=== PATIENT | male | born 1965 | race Caucasian/White ===

== ENCOUNTER 2021-04-06 09:21 | Inpatient (IN) | payer MEDICAID, OTHER ==
[~2021-04-06] VITALS: Ht 177.8 cm; Wt 118.2 kg
[2021-04-06] MEDS ORDERED: nitroGLYCERIN 0.4mg SUBLingual tab SL PRN ×2 (09:40→11:35)
[2021-04-06] MEDS ORDERED: diltiazem-NS 100mg/100ml 100 ML IV ONE (09:40)
[2021-04-06] MEDS ORDERED: aspirin 81mg tab.chew PO ONE (09:40)
[2021-04-06] MEDS ORDERED: diltiazem 5mg/ml 5ml inj. IV ONE (09:40)
[2021-04-06] MEDS ORDERED: nitroGLYCERIN 0.4mg/hour patch TD ONE (09:40)
[2021-04-06 10:01] LABS: BASOPHILS # (AUTO) 0.1 X10'3 (0-0.2); BASOPHILS % (AUTO) 1.3 % (0-1); EOSINOPHILS # (AUTO) 0.2 X10'3 (0-0.9); EOSINOPHILS % (AUTO) 3.3 % (0-6); HEMATOCRIT 49.9 % (42.0-52.0); HEMOGLOBIN 17.6 g/dl (14.0-17.9); LYMPHOCYTES # (AUTO) 1.8 X10'3 (1.1-4.8); MEAN CORPUSCULAR HEMOGLOBIN 32.4 PG (27.0-31.0); MEAN CORPUSCULAR HGB CONC 35.3 g/dL (33.0-36.5); MEAN PLATELET VOLUME 8.2 FL (7.4-10.4); MONOCYTES # (AUTO) 0.5 X10'3 (0-0.9); NEUTROPHILS # (AUTO) 3.4 X10'3 (1.8-7.7); NEUTROPHILS % (AUTO) 57.4 % (42-75); PLATELET COUNT 154 X10'3 (140-440); RED BLOOD COUNT 5.42 X10'6 (4.70-6.10); RED CELL DISTRIBUTION WIDTH 13.5 % (11.5-14.5); WHITE BLOOD COUNT 5.9 X10'3 (4.5-11.0)
[2021-04-06 10:23] LABS: ALANINE AMINOTRANSFERASE 62 U/L (12-78); ALBUMIN 3.5 G/DL (3.4-5.0); ALBUMIN/GLOBULIN RATIO 0.9 (1.1-1.5); ALKALINE PHOSPHATASE 116 IU/L (46-116); ASPARTATE AMINO TRANSFERASE 39 U/L (10-37); BILIRUBIN,TOTAL 0.4 MG/DL (0.1-1.0); BLOOD UREA NITROGEN 15 MG/DL (7-18); BUN/CREATININE RATIO 13.9 (5.4-32.0); CALCIUM 9.1 MG/DL (8.5-10.1); CREATININE 1.08 MG/DL (0.60-1.10); GLUCOSE 138 MG/DL (70-104); MAGNESIUM 1.7 MG/DL (1.5-2.4); TOTAL CARBON DIOXIDE 26.1 MMOL/L (24-32); TOTAL PROTEIN 7.6 G/DL (6.4-8.2); eGFR 71 ML/MIN
--- NOTE | 2021-04-06 10:30 | NUR ---
made dr malin aware that pt denies any cp at this time ,nitro patch is on.
[2021-04-06 11:07] LABS: ANION GAP 8 (8-16); CHLORIDE 106 MMOL/L (99-107); POTASSIUM 4.5 MMOL/L (3.5-5.1); SODIUM 140 MMOL/L (135-145)
[2021-04-06] MEDS ORDERED: PERFLUTREN PROTEIN-A MICROSPHR (Optison) 0.22 MG/ML 3ML VIAL IV ONE (11:30)
[2021-04-06] MEDS ORDERED: magnesium Cl slow-release 64mg tablet PO PRN (11:30)
[2021-04-06] MEDS ORDERED: potassium CL 10mEq/100ml bag 100 ML IV PRN (11:30)
[2021-04-06] MEDS ORDERED: haloperidol 5mg tablet PO PRN (11:30)
[2021-04-06] MEDS ORDERED: magnesium 4gm in 100ml NS 100 ML IV PRN (11:30)
[2021-04-06] MEDS ORDERED: dextrose 50%-water 50ml dispensing syringe IV PRN (11:30)
[2021-04-06] MEDS ORDERED: haloperidol lactate 5mg/ml inj IM PRN (11:30)
[2021-04-06] MEDS ORDERED: LORazepam 1 MG tablet PO PRN (11:30)
[2021-04-06] MEDS ORDERED: morphine 2 MG/ML inj. syringe IV PRN ×2 (11:30)
[2021-04-06] MEDS ORDERED: magnesium 2GM in 50ml NS 50 ML IV PRN (11:30)
[2021-04-06] MEDS ORDERED: normal saline 1000ml 1,000 ML IV SCH (11:30)
[2021-04-06] MEDS ORDERED: ondansetron/PF 4mg/2ml inj IV PRN (11:30)
[2021-04-06] MEDS ORDERED: acetaminophen 325mg tablet PO PRN (11:30)
[2021-04-06] MEDS ORDERED: potassium Cl 20 mEq SR tablet PO PRN ×2 (11:30)
[2021-04-06] MEDS ORDERED: LORazepam 2 mg/ml vial IV PRN (11:30)
[2021-04-06] MEDS ORDERED: aminophylline 250mg/10ml inj. IV PRN (11:35)
[2021-04-06] MEDS ORDERED: regadenoson 0.4mg/5ml syringe IV ONE (11:35)
[2021-04-06] MEDS ORDERED: metoprolol tartrate 1mg/ml inj IV PRN (11:35)
[2021-04-06] MEDS ORDERED: enoxaparin 60mg/0.6ml syringe SUBCUT ONE (11:40)
[2021-04-06] MEDS ORDERED: NO HOME MEDS (12:31)
[2021-04-06] MEDS: thiamine 100mg tablet PO SCH (12:36)
[2021-04-06] MEDS: folic acid 1mg tablet PO SCH (12:36)
[2021-04-06] MEDS ORDERED: thiamine 100mg/ml 2ml inj. IV SCH (13:00)
[2021-04-06] MEDS ORDERED: sotalol 80mg tablet PO STA (13:17)
[2021-04-06 13:25] LABS: POTASSIUM 4.5 MMOL/L (3.5-5.1)
[2021-04-06] MEDS: diltiazem 30mg tablet PO SCH ×2 (14:18→20:54)
--- NOTE | 2021-04-06 14:20 | NUR ---
relieving RN for break, pt is resting quietly on gurney, no chest pain/discomfort, no SOB, talking full sentences, skin p/w/d
--- NOTE | 2021-04-06 14:52 | NUR ---
called dr yost and informed that pt HR 80 ,Pt has recived po cardizem med and patient is on cardizem drip infusing at 5 mg/hr as per md stop the cardizem drip .
[2021-04-06] MEDS: K and/or MAG REPLACEMENT MC SCH (20:00)
--- NOTE | 2021-04-06 21:30 | NUR ---
Received pt in bed AAOX4, oriented pt to room and staff. Pt placed on the tele monitor box 14. admission assessment done. Pt refused skin check and IV fluid to be started.
[2021-04-06 22:45] VITALS: BP 105/67
[2021-04-07] VITALS (11 sets, daily range): BP systolic 94–135; BP diastolic 55–114
[2021-04-07] MEDS: diltiazem 30mg tablet PO SCH ×2 (02:23→08:00)
[2021-04-07] MEDS: thiamine 100mg tablet PO SCH (07:54)
[2021-04-07] MEDS: folic acid 1mg tablet PO SCH (07:54)
[2021-04-07] MEDS: K and/or MAG REPLACEMENT MC SCH (08:00)
[2021-04-07] MEDS ORDERED: folic acid 1mg/0.2ml inj IV SCH (08:00)
--- NOTE | 2021-04-07 08:13 | NUR ---
pt reluctant this am to do apple scan " i don't want no juice inmy veins" he said. discussed purpose of test, concerns about heart, apple tech reviewed also with pt and he agreed to do it after answering all his questions. 20min spent educating
[2021-04-07 09:21] LABS: BASOPHILS # (AUTO) 0.1 X10'3 (0-0.2); BASOPHILS % (AUTO) 0.9 % (0-1); EOSINOPHILS # (AUTO) 0.2 X10'3 (0-0.9); EOSINOPHILS % (AUTO) 3.3 % (0-6); LYMPHOCYTES # (AUTO) 1.5 X10'3 (1.1-4.8); LYMPHOCYTES % (AUTO) 22.4 % (21-51); MEAN PLATELET VOLUME 8.8 FL (7.4-10.4); MONOCYTES # (AUTO) 0.5 X10'3 (0-0.9); NEUTROPHILS # (AUTO) 4.3 X10'3 (1.8-7.7); NEUTROPHILS % (AUTO) 65.4 % (42-75); PLATELET COUNT 147 X10'3 (140-440); WHITE BLOOD COUNT 6.6 X10'3 (4.5-11.0)
[2021-04-07 09:37] LABS: ALBUMIN 3.3 G/DL (3.4-5.0); ANION GAP 10 (8-16); BLOOD UREA NITROGEN 19 MG/DL (7-18); BUN/CREATININE RATIO 17.4 (5.4-32.0); CALCIUM 8.8 MG/DL (8.5-10.1); CHLORIDE 107 MMOL/L (99-107); CHOL/HDL RATIO 5.4 (0.00-4.99); CHOLESTEROL 205 MG/DL (0-200); CREATININE 1.09 MG/DL (0.60-1.10); GLUCOSE 129 MG/DL (70-104); HDL CHOLESTEROL 38 MG/DL (35-60); LDL CHOLESTEROL 125 MG/DL (50-100); MAGNESIUM 1.8 MG/DL (1.5-2.4); POTASSIUM 4.2 MMOL/L (3.5-5.1); SODIUM 142 MMOL/L (135-145); TOTAL CARBON DIOXIDE 25.4 MMOL/L (24-32); TRIGLYCERIDES 216 MG/DL (20-135); eGFR 70 ML/MIN
[2021-04-07 09:56] LABS: HEMOGLOBIN 15.6 g/dl (14.0-17.9); MEAN CORPUSCULAR HEMOGLOBIN 33.1 PG (27.0-31.0); MEAN CORPUSCULAR HGB CONC 35.5 g/dL (33.0-36.5); MEAN CORPUSCULAR VOLUME 93.1 FL (78-98); RED BLOOD COUNT 4.73 X10'6 (4.70-6.10); RED CELL DISTRIBUTION WIDTH 12.8 % (11.5-14.5)
[2021-04-07] MEDS ORDERED: regadenoson 0.4mg/5ml syringe IV ONE (12:30)
[2021-04-07] MEDS ORDERED: diltiazem CD 120mg capsule (once-daily) PO SCH (13:00)
--- NOTE | 2021-04-07 15:01 | NUR ---
Unable to reach cardiology for echo via phone, sent page. replied that he has two or 3 pt's before tasha but will be today. paged tylor PAGER ID: [phone] MESSAGE: [phone] Ze Costello- , echo will be up today- [place] [phone]
--- NOTE | 2021-04-07 15:07 | NUR ---
coffee machine technician reports pt converted to sr at 1506. rate 60-62. pt stable, deny c/p neuro intact
--- NOTE | 2021-04-07 15:51 | NUR ---
pt neuro intact, sr 62, echo now in progress.
[2021-04-07] MEDS ORDERED: CARCD120C PO (17:34)
[2021-04-07] MEDS ORDERED: ASPI-1264 PO (17:34)
--- NOTE | 2021-04-07 18:26 | NUR ---
Problems reprioritized. Patient report given, questions answered & plan of care reviewed with Susannah PRESSLEY.
--- NOTE | 2021-04-07 18:31 | NUR ---
Patient in room PCU 3013. I have received report from HUAN Mccormick and had the opportunity to ask questions and assume patient care.
--- NOTE | 2021-04-07 19:01 | NUR ---
Patient been discharged home, PIV on right arm and leads was removed. Answers all questions to patient satisfaction. Accompanied patient, left the facility in stable condition.
[2021-04-08] MEDS ORDERED: LEVO25TA2 PO (12:59)
== END 2021-04-07 19:42 | disposition home or self-care (01) | DRG 310 ==
LOC: ER 09:21 → ED HOLD 11:32 → EDBEDREQ 20:35 → PCU 3S 21:25
PROVIDERS: ADMIT Internal Medicine; ATTEND Internal Medicine
PROC: 4A02XM4 Measurement of Cardiac Total Activity, External Approach (ICD-10-PCS; principal; 2021-04-07)
PROC: 3E073KZ Introduction of Other Diagnostic Substance into Coronary Artery, Percutaneous Approach (ICD-10-PCS; 2021-04-07)
DX: I48.0 Paroxysmal atrial fibrillation (principal); R07.9 Chest pain, unspecified; E03.9 Hypothyroidism, unspecified; G89.29 Other chronic pain; J44.9 Chronic obstructive pulmonary disease, unspecified; I10 Essential (primary) hypertension; Z79.899 Other long term (current) drug therapy; Z88.0 Allergy status to penicillin
CPT/HCPCS: 36415; 71045; 78452; 80048; 80053; 80061; 82948; 83735; 83880; 84132; 84443; 84484; 85025; 87081; 93005; 93017; 93306; 96365; 96376; 99285; A9500; G0378; J1650; J2785; J3490; J7030

== ENCOUNTER 2022-09-27 13:35 | Emergency (ER) | payer MEDICAID ==
[~2022-09-27] VITALS: Ht 177.8 cm; Wt 107.3 kg
[~2022-09-27 13:35] MED LIST: CARCD120C PO
[2022-09-27 14:23] LABS: ALANINE AMINOTRANSFERASE 48 U/L (12-78); ALBUMIN 3.7 G/DL (3.4-5.0); ALBUMIN/GLOBULIN RATIO 1.2 (1.1-1.5); ALKALINE PHOSPHATASE 88 IU/L (46-116); ANION GAP 6 (8-16); ASPARTATE AMINO TRANSFERASE 23 U/L (10-37); BILIRUBIN,TOTAL 0.6 MG/DL (0.1-1.0); BLOOD UREA NITROGEN 22 MG/DL (7-18); BUN/CREATININE RATIO 16.7 (10.0-20.0); CALCIUM 9.1 MG/DL (8.5-10.1); CHLORIDE 107 MMOL/L (99-107); CREATININE 1.32 MG/DL (0.60-1.10); GLUCOSE 171 MG/DL (70-104); MAGNESIUM 1.9 MG/DL (1.5-2.4); SODIUM 138 MMOL/L (135-145); TOTAL CARBON DIOXIDE 25.4 MMOL/L (24-32); TOTAL PROTEIN 6.9 G/DL (6.4-8.2); eGFR 56 ML/MIN
[2022-09-27 14:25] LABS: BASOPHILS # (AUTO) 0.1 X10'3 (0-0.2); EOSINOPHILS # (AUTO) 0.2 X10'3 (0-0.9); HEMOGLOBIN 15.8 g/dl (14.0-17.9); MONOCYTES # (AUTO) 0.4 X10'3 (0-0.9); WHITE BLOOD COUNT 6.4 X10'3 (4.5-11.0)
[2022-09-27 14:27] LABS: BASOPHILS % (AUTO) 1.3 % (0-1); EOSINOPHILS % (AUTO) 2.6 % (0-6); HEMATOCRIT 46.4 % (42.0-52.0); LYMPHOCYTES # (AUTO) 2.1 X10'3 (1.1-4.8); MEAN CORPUSCULAR HEMOGLOBIN 31.8 PG (27.0-31.0); MEAN CORPUSCULAR HGB CONC 34.1 g/dL (33.0-36.5); MEAN CORPUSCULAR VOLUME 93.2 FL (78-98); MEAN PLATELET VOLUME 8.9 FL (7.4-10.4); MONOCYTES % (AUTO) 7.1 % (2-12); NEUTROPHILS # (AUTO) 3.6 X10'3 (1.8-7.7); PLATELET COUNT 152 X10'3 (140-440); RED BLOOD COUNT 4.98 X10'6 (4.70-6.10); RED CELL DISTRIBUTION WIDTH 13.5 % (11.5-14.5)
[2022-09-27 15:18] VITALS: BP 107/78
== END 2022-09-27 16:04 | disposition home or self-care (01) ==
LOC: ER 13:35
DX: I48.91 Unspecified atrial fibrillation (principal); J44.9 Chronic obstructive pulmonary disease, unspecified; G89.29 Other chronic pain; Z88.0 Allergy status to penicillin
CPT/HCPCS: 36415; 71045; 80053; 83735; 83880; 84484; 85025; 93005; 99285

== ENCOUNTER 2023-08-01 12:52 | Emergency (ER) | payer MEDICAID, OTHER ==
[~2023-08-01] VITALS: Ht 180.3 cm; Wt 118.2 kg
[2023-08-01 12:57] VITALS: BP 162/84; PULSE 51; RESP 16; TEMP 97.8; O2SAT 99
== END 2023-08-01 14:12 | disposition left against medical advice (07) ==
LOC: ER 12:52
DX: R11.0 Nausea (principal); R10.9 Unspecified abdominal pain; Z53.21 Procedure and treatment not carried out due to patient leaving prior to being seen by health care provider
CPT/HCPCS: 99281

== ENCOUNTER 2024-08-05 09:51 | Emergency (ER) | payer MEDICAID ==
[~2024-08-05] VITALS: Ht 177.8 cm; Wt 116.3 kg
[2024-08-05 09:58] VITALS: TEMP 98.4
[2024-08-05 10:22] LABS: BASOPHILS # (AUTO) 0.1 X10'3 (0-0.2); BASOPHILS % (AUTO) 0.9 % (0-1); EOSINOPHILS # (AUTO) 0.2 X10'3 (0-0.9); EOSINOPHILS % (AUTO) 3.2 % (0-6); HEMATOCRIT 52.3 % (42.0-52.0); HEMOGLOBIN 17.9 g/dl (14.0-17.9); LYMPHOCYTES # (AUTO) 1.7 X10'3 (1.1-4.8); LYMPHOCYTES % (AUTO) 29.8 % (21-51); MEAN CORPUSCULAR HEMOGLOBIN 31.2 PG (27.0-31.0); MEAN CORPUSCULAR HGB CONC 34.1 g/dL (33.0-36.5); MEAN CORPUSCULAR VOLUME 91.4 FL (78-98); MEAN PLATELET VOLUME 8.3 FL (7.4-10.4); MONOCYTES # (AUTO) 0.4 X10'3 (0-0.9); MONOCYTES % (AUTO) 6.4 % (2-12); NEUTROPHILS # (AUTO) 3.5 X10'3 (1.8-7.7); NEUTROPHILS % (AUTO) 59.7 % (42-75); PLATELET COUNT 173 X10'3 (140-440); RED BLOOD COUNT 5.72 X10'6 (4.70-6.10); RED CELL DISTRIBUTION WIDTH 13.4 % (11.5-14.5); WHITE BLOOD COUNT 5.9 X10'3 (4.5-11.0)
[2024-08-05 10:40] LABS: ALANINE AMINOTRANSFERASE 25 U/L (12-78); ALBUMIN 3.9 G/DL (3.4-5.0); ALBUMIN/GLOBULIN RATIO 0.9 (1.1-1.5); ALKALINE PHOSPHATASE 97 IU/L (46-116); ANION GAP 6 (8-16); ASPARTATE AMINO TRANSFERASE 10 U/L (10-37); BILIRUBIN,TOTAL 0.5 MG/DL (0.1-1.0); BLOOD UREA NITROGEN 19 MG/DL (7-18); BUN/CREATININE RATIO 19.2 (10.0-20.0); CALCIUM 9.1 MG/DL (8.5-10.1); CHLORIDE 106 MMOL/L (99-107); CREATININE 0.99 MG/DL (0.60-1.10); GLUCOSE 165 MG/DL (70-104); POTASSIUM 4.3 MMOL/L (3.5-5.1); SODIUM 138 MMOL/L (135-145); TOTAL CARBON DIOXIDE 25.6 MMOL/L (24-32); TOTAL PROTEIN 8.1 G/DL (6.4-8.2); eCRCL 85 ML/MIN; eGFR 78 ML/MIN
[2024-08-05 10:49] LABS: PRO BRAIN NATRIURETIC PEPTIDE 1079 PG/ML (0-125)
[2024-08-05 14:14] VITALS: BP 125/92; PULSE 66; RESP 14; O2SAT 96
== END 2024-08-05 14:46 | disposition home or self-care (01) ==
LOC: ER 09:52
DX: I48.91 Unspecified atrial fibrillation (principal); R00.2 Palpitations; J44.9 Chronic obstructive pulmonary disease, unspecified; Z88.0 Allergy status to penicillin; Z79.899 Other long term (current) drug therapy
CPT/HCPCS: 36415; 71045; 80053; 83880; 84484; 85025; 93005; 99285